=== PATIENT | female | born 1980 | race Hispanic/Latino ===

== ENCOUNTER 2020-11-23 17:54 | Emergency (ER) | payer OTHER ==
[~2020-11-23] VITALS: Ht 160 cm; Wt 49.9 kg
[2020-11-23 17:54] VITALS: BP 128/84
== END 2020-11-23 23:33 | disposition left against medical advice (07) ==
LOC: EDH 17:54
DX: Z53.21 Procedure and treatment not carried out due to patient leaving prior to being seen by health care provider (principal)